=== PATIENT | female | born 1950 | race Caucasian/White ===

== ENCOUNTER 2024-05-16 10:08 | Inpatient (IN) ==
[~2024-05-16 10:08] MED LIST: NS 0.45% 1000 ml BAG 1,000 ML IV SCH; Naloxone 0.4 mg VIAL 0.4 mg/ml 1 ml VIAL IV PRN; Ondansetron 4 mg VIAL 2 MG/ML 2 ml VIAL IV PRN; fentaNYL 100 mcg/2 ml 50 MCG/ML VIAL IV PRN
[2024-05-16] MEDS ORDERED: Propofol 10 MG/ML 20 ML BTL ONE (10:13)
[2024-05-16] MEDS ORDERED: Rocuronium 50 mg VIAL 10 mg/ml 5 ml VIAL (50 mg) ONE ×3 (10:13→17:45)
[2024-05-16] MEDS ORDERED: Dexamethasone IV 4 MG/ML VIAL 1 ml VIAL ONE ×2 (10:13→13:35)
[2024-05-16] MEDS ORDERED: Ondansetron 4 mg VIAL 2 MG/ML 2 ml VIAL ONE (10:13)
[2024-05-16] MEDS ORDERED: Lidocaine 2% PF 5 ML VIAL ONE (10:13)
[2024-05-16] MEDS ORDERED: Midazolam 2 mg/2 ml VIAL 1 mg/ml 2 ml VIAL (2 mg) ONE ×2 (10:14→13:35)
[2024-05-16] MEDS ORDERED: fentaNYL 250 mcg/5 ml 50 MCG/ML 5 ml VIAL (250 MCG) ONE (10:14)
[2024-05-16] MEDS: Buffered Lidocaine 1% SYRIN 1 ml INTRADERM ONE (11:18)
[2024-05-16] MEDS ORDERED: ceFAZolin 2 GM PREMIX 2 GM/50 ML BAG ONE (12:04)
[2024-05-16 12:14] LABS: Rapid COVID-19 Molecular Undetected (Undetected)
[2024-05-16] MEDS: Lactated Ringers 1000 ml BAG 1,000 ML IV SCH ×2 (12:49→22:17)
[2024-05-16] MEDS ORDERED: ROPIVACAINE 5 MG/ML 30 ML BTL (0.5%) ONE (13:35)
[2024-05-16] MEDS ORDERED: HYDROmorphone 0.5 MG/0.5 ML SYRINGE ONE (14:08)
[2024-05-16] MEDS ORDERED: Acetaminophen IV 1 GM/100ML 1,000 MG/100 ML BAG IV ONE (15:35)
[2024-05-16] MEDS ORDERED: fentaNYL 100 mcg/2 ml 50 MCG/ML VIAL ONE ×2 (16:59→18:17)
[2024-05-16] MEDS ORDERED: Vancomycin 1,000 MG VIAL ONE (18:05)
[2024-05-16] MEDS ORDERED: Lactulose 30 ml UDC PO PRN (19:01)
[2024-05-16] MEDS ORDERED: Magnesium Hydroxide LIQ 30 ML UDC PO PRN (19:01)
[2024-05-16] MEDS: Magnesium Hydroxide LIQ 30 ML UDC PO SCH (22:27)
[2024-05-16] MEDS: ceFAZolin 1 GM ADVAN 1 GM in NS 0.9% 50 ML 50 ML IVPB SCH (22:46)
[2024-05-16] MEDS: Acetaminophen IV 1 GM/100ML 1,000 MG/100 ML BAG IV ONE (22:55)
[2024-05-17 05:25] LABS: Hematocrit 31.6 % (35-45); Hemoglobin 10.9 g/dL (11.5-14.3); Mean Platelet Volume 6.6 fL (7.5-11.2); Platelet Count 382 10^3/uL (150-450)
[2024-05-17 05:58] LABS: Calcium 8.1 mg/dL (8.6-10.3); Creatinine, Serum 0.71 mg/dL (0.51-0.95); Potassium 4.6 mmol/L (3.5-5.0); eGFR CKD-EPI 89.7 (>60)
[2024-05-17] MEDS: CMCS:FLUTICAS/UMECLI/VILANT 100-62.5-25 MDI (NF) INH SCH (07:21)
[2024-05-17] MEDS: Vitamin THERAPEUTIC TAB PO SCH (09:56)
[2024-05-17 10:06] LABS: Urine Appearance Clear; Urine Bilirubin Negative (Negative); Urine Blood Negative (Negative); Urine Color Light-Yellow; Urine Glucose Negative (Negative); Urine Ketones Negative (Negative); Urine Nitrite Negative (Negative); Urine Protein Negative (Negative); Urine Urobilinogen Negative (Negative)
[2024-05-17 10:16] LABS: Urine Bacteria Absent /HPF (Absent); Urine Red Blood Cell Trace(0-2/hpf) /HPF (0-Trace); Urine White Blood Cell 2+(11-20/hpf) /HPF (0-Trace)
[2024-05-17] MEDS: Enoxaparin 40 MG/0.4 ML SYR SUBCUT SCH (12:58)
[2024-05-17] MEDS: Ondansetron ODT 4 mg TAB 4 MG TAB PO PRN (20:46)
[2024-05-18] MEDS: Morphine 2 MG/ML SYRINGE IV PRN (02:54)
[2024-05-18 06:12] LABS: Hematocrit 29.1 % (35-45); Mean Platelet Volume 6.8 fL (7.5-11.2); Platelet Count 358 10^3/uL (150-450)
[2024-05-19 07:45] LABS: Hematocrit 31.6 % (35-45); Hemoglobin 10.3 g/dL (11.5-14.3); Mean Platelet Volume 6.8 fL (7.5-11.2); Platelet Count 408 10^3/uL (150-450)
[2024-05-20 08:09] LABS: Hematocrit 33.5 % (35-45); Hemoglobin 10.9 g/dL (11.5-14.3); Platelet Count 309 10^3/uL (150-450)
[2024-05-21 06:17] LABS: Hematocrit 29.6 % (35-45); Hemoglobin 10.2 g/dL (11.5-14.3); Mean Platelet Volume 6.9 fL (7.5-11.2); Platelet Count 366 10^3/uL (150-450)
[2024-05-21] MEDS: PTO:Albuterol HFA INHALER 8 gm MDI INH PRN (09:18)
[2024-05-22 01:26] LABS: Calcium 8.7 mg/dL (8.6-10.3); Creatinine, Serum 0.66 mg/dL (0.51-0.95); Potassium 4.3 mmol/L (3.5-5.0); eGFR CKD-EPI 92.6 (>60)
[2024-05-22 06:31] LABS: Hematocrit 32.2 % (35-45); Hemoglobin 10.8 g/dL (11.5-14.3); Mean Corpuscular Hemoglobin 32.3 pg (27-33); Mean Corpuscular Hgb Conc 33.5 g/dL (31-36); Mean Corpuscular Volume 96.6 fL (80-97); Mean Platelet Volume 6.8 fL (7.5-11.2); Platelet Count 423 10^3/uL (150-450); Red Blood Count 3.33 10^6/uL (3.63-4.92); Red Cell Distribution Width 13.7 % (12-17); White Blood Count 9.9 10^3/uL (3.8-11.8)
[2024-05-22 07:15] LABS: Calcium 8.8 mg/dL (8.6-10.3); Creatinine, Serum 0.82 mg/dL (0.51-0.95); Magnesium 2.2 mg/dL (1.9-2.7); Potassium 4.7 mmol/L (3.5-5.0); eGFR CKD-EPI 75.5 (>60)
[2024-05-22 08:21] LABS: ABS Eosinophils 0.4 10^3/uL (0.0-0.5); ABS Lymphocytes 1.6 10^3/uL (1.0-4.8); ABS Monocytes 0.8 10^3/uL (0.0-0.9); Eosinophil % 3.9 %; Lymphocyte % 16.3 %
[2024-05-22 10:23] VITALS: BP 130/77
[2024-05-22] MEDS: Iohexol 350 (CONTRAST) 500 ML MDV IV ONE (11:19)
== END 2024-05-22 11:45 | DRG 493 ==
LOC: OR 10:08 → SSU 10:08 → SUATTDRO 05-18 13:11
PROVIDERS: ADMIT Orthopaedic Surgery; ATTEND Orthopaedic Surgery

== ENCOUNTER 2024-06-26 17:20 | Inpatient (IN) ==
[2024-06-26] MEDS ORDERED: Ondansetron ODT 4 mg TAB 4 MG TAB PO PRN (17:51)
[2024-06-26] MEDS ORDERED: Morphine 2 MG/ML SYRINGE IV PRN (17:51)
[2024-06-26] MEDS ORDERED: Magnesium Hydroxide LIQ 30 ML UDC PO PRN (17:51)
[2024-06-26] MEDS ORDERED: Lactulose 30 ml UDC PO PRN (17:51)
[2024-06-26] MEDS ORDERED: Ondansetron 4 mg VIAL 2 MG/ML 2 ml VIAL IV PRN (17:51)
[2024-06-26] MEDS ORDERED: Vancomycin per Pharmacy 1 EA NOTE FOLLOW UP SCH (18:00)
[2024-06-26] MEDS: Vancomycin 1,000 MG in NS 0.9% 250 ml 250 ML IVPB ONE (18:56)
[2024-06-26 18:57] LABS: ABS Eosinophils 0.3 10^3/uL (0.0-0.5); ABS Lymphocytes 2.1 10^3/uL (1.0-4.8); ABS Monocytes 0.6 10^3/uL (0.0-0.9); ABS Neutrophils 7.1 10^3/uL (1.5-7.6); ABS Nucleated RBC 0.02 10^3/ul; Eosinophil % 2.7 %; Hemoglobin 12.5 g/dL (11.5-14.3); Lymphocyte % 20.4 %; Mean Corpuscular Hemoglobin 29.5 pg (27-33); Mean Corpuscular Hgb Conc 32.9 g/dL (31-36); Mean Corpuscular Volume 89.8 fL (80-97); Mean Platelet Volume 7.1 fL (7.5-11.2); Nucleated Red Blood Cells % 0.2 %/100WBC (0.0-0.8); Platelet Count 562 10^3/uL (150-450); Red Blood Count 4.23 10^6/uL (3.63-4.92); Red Cell Distribution Width 14.9 % (12-17); White Blood Count 10.1 10^3/uL (3.8-11.8)
[2024-06-26] MEDS: Lactated Ringers 1000 ml BAG 1,000 ML IV SCH (18:57)
[2024-06-26 19:33] LABS: Albumin 3.7 g/dL (3.2-5.2); Albumin/Globulin Ratio 0.9 (1-3); C Reactive Protein 89.95 mg/L (<8.01); Calcium 9.2 mg/dL (8.6-10.3); Creatinine, Serum 0.59 mg/dL (0.51-0.95); Potassium 4.3 mmol/L (3.5-5.0); Total Bilirubin 0.4 mg/dL (0.2-1.0); Total Protein 7.7 g/dL (6.4-8.9); eGFR CKD-EPI 95.1 (>60)
[2024-06-26] MEDS ORDERED: Albuterol/Ipratropium NEB.SOL (2.5/0.5 MG) 3 ML NEB.SOLN ONE (19:54)
[2024-06-26] MEDS: Albuterol/Ipratropium NEB.SOL (2.5/0.5 MG) 3 ML NEB.SOLN INH ONE ×2 (19:59→21:04)
[2024-06-26] MEDS: Iohexol 350 (CONTRAST) 500 ML MDV IV ONE (20:48)
[2024-06-26] MEDS: Magnesium Hydroxide LIQ 30 ML UDC PO SCH (20:58)
[2024-06-27] MEDS: Vancomycin 1,250 MG in NS 0.9% 250 ml 250 ML IVPB SCH ×2 (04:44→04:46)
[2024-06-27] MEDS ORDERED: Lidocaine 2% PF 5 ML VIAL INJ ONE (06:51)
[2024-06-27] MEDS ORDERED: fentaNYL 100 mcg/2 ml 50 MCG/ML VIAL IV ONE ×3 (06:51→11:11)
[2024-06-27] MEDS ORDERED: Propofol 10 MG/ML 20 ML BTL IV ONE (06:51)
[2024-06-27] MEDS: Hyaluronidase HUMAN 15 UNIT in Sodium Chloride 0.9% 0.9 ML INTRADERM ONE (07:18)
[2024-06-27] MEDS ORDERED: Succinylcholine 200 mg VIAL 20 mg/ml 10 ml VIAL (200 mg) IV ONE (08:14)
[2024-06-27] MEDS: FLUTICAS/UMECLI/VILANT 100-62.5-25 MDI (NF) INH SCH (08:37)
[2024-06-27] MEDS ORDERED: Rocuronium 50 mg VIAL 10 mg/ml 5 ml VIAL (50 mg) INJ ONE (08:46)
[2024-06-27] MEDS ORDERED: Phenylephrine 40 mcg/mL 10mL (400mcg) SYRINGE INJ ONE (08:53)
[2024-06-27] MEDS ORDERED: Naloxone 0.4 mg VIAL 0.4 mg/ml 1 ml VIAL IV PRN (09:28)
[2024-06-27] MEDS ORDERED: Morphine 4 MG/ML VIAL (1 ml) IV PRN (09:28)
[2024-06-27] MEDS: fentaNYL 100 mcg/2 ml 50 MCG/ML VIAL IV PRN (11:12)
[2024-06-27] MEDS: Vitamin THERAPEUTIC TAB PO SCH (14:08)
[2024-06-27] MEDS: Nystatin TOP POWDER 15 GM BTL TOPICAL SCH (21:08)
[2024-06-28 06:15] LABS: ABS Basophils 0.1 10^3/uL (0.0-0.1); ABS Eosinophils 0.3 10^3/uL (0.0-0.5); ABS Lymphocytes 1.5 10^3/uL (1.0-4.8); ABS Monocytes 0.6 10^3/uL (0.0-0.9); ABS Neutrophils 5.8 10^3/uL (1.5-7.6); ABS Nucleated RBC 0.01 10^3/ul; Eosinophil % 3.2 %; Hematocrit 33.2 % (35-45); Lymphocyte % 18.5 %; Mean Corpuscular Hgb Conc 33.1 g/dL (31-36); Mean Corpuscular Volume 90.6 fL (80-97); Mean Platelet Volume 6.8 fL (7.5-11.2); Nucleated Red Blood Cells % 0.1 %/100WBC (0.0-0.8); Platelet Count 421 10^3/uL (150-450); Red Blood Count 3.67 10^6/uL (3.63-4.92); Red Cell Distribution Width 14.8 % (12-17); White Blood Count 8.3 10^3/uL (3.8-11.8)
[2024-06-28 06:57] LABS: Albumin/Globulin Ratio 0.9 (1-3); Calcium 8.1 mg/dL (8.6-10.3); Creatinine, Serum 0.56 mg/dL (0.51-0.95); Globulin 3.2 g/dL (2-4); Potassium 3.9 mmol/L (3.5-5.0); Total Bilirubin 0.4 mg/dL (0.2-1.0); Total Protein 6.2 g/dL (6.4-8.9); eGFR CKD-EPI 96.3 (>60)
[2024-06-28] MEDS: Albuterol HFA INHALER 8 gm MDI INH PRN (09:29)
[2024-06-28] MEDS: cefTRIAXone 1 gm/50 mL D5W 1 GM/50 ML BAG IV SCH (09:40)
[2024-06-28] MEDS: Enoxaparin 40 MG/0.4 ML SYR SUBCUT SCH (11:46)
[2024-06-28] MEDS: Vancomycin Trough Check NOTE FOLLOW UP ONE (17:26)
[2024-06-29 05:58] LABS: ABS Basophils 0.1 10^3/uL (0.0-0.1); ABS Eosinophils 0.3 10^3/uL (0.0-0.5); ABS Lymphocytes 1.8 10^3/uL (1.0-4.8); ABS Monocytes 0.5 10^3/uL (0.0-0.9); ABS Neutrophils 3.8 10^3/uL (1.5-7.6); ABS Nucleated RBC 0.01 10^3/ul; Eosinophil % 5.2 %; Hematocrit 32.5 % (35-45); Hemoglobin 10.8 g/dL (11.5-14.3); Lymphocyte % 27.1 %; Mean Corpuscular Hemoglobin 30.1 pg (27-33); Mean Corpuscular Hgb Conc 33.2 g/dL (31-36); Mean Corpuscular Volume 90.7 fL (80-97); Mean Platelet Volume 6.9 fL (7.5-11.2); Nucleated Red Blood Cells % 0.1 %/100WBC (0.0-0.8); Platelet Count 409 10^3/uL (150-450); Red Blood Count 3.59 10^6/uL (3.63-4.92); White Blood Count 6.5 10^3/uL (3.8-11.8)
[2024-06-29] MEDS: Vancomycin Random Level NOTE FOLLOW UP ONE (06:00)
[2024-06-29 06:25] LABS: Calcium 8.3 mg/dL (8.6-10.3); Creatinine, Serum 0.49 mg/dL (0.51-0.95); Magnesium 2.1 mg/dL (1.9-2.7); Potassium 4.1 mmol/L (3.5-5.0); eGFR CKD-EPI 99.5 (>60)
[2024-06-29] MEDS: Vancomycin 1000 MG in NS 0.9% 250 ML IVPB SCH (11:24)
[2024-06-30 08:20] LABS: ABS Eosinophils 0.3 10^3/uL (0.0-0.5); ABS Lymphocytes 1.7 10^3/uL (1.0-4.8); ABS Monocytes 0.5 10^3/uL (0.0-0.9); ABS Neutrophils 4.4 10^3/uL (1.5-7.6); ABS Nucleated RBC 0.01 10^3/ul; Lymphocyte % 24.5 %; Mean Corpuscular Hemoglobin 29.7 pg (27-33); Mean Corpuscular Hgb Conc 33.3 g/dL (31-36); Mean Corpuscular Volume 89.3 fL (80-97); Mean Platelet Volume 6.8 fL (7.5-11.2); Nucleated Red Blood Cells % 0.1 %/100WBC (0.0-0.8); Platelet Count 457 10^3/uL (150-450); Red Cell Distribution Width 14.7 % (12-17); White Blood Count 6.8 10^3/uL (3.8-11.8)
[2024-06-30 08:42] LABS: Calcium 8.3 mg/dL (8.6-10.3); Creatinine, Serum 0.56 mg/dL (0.51-0.95); Magnesium 2.2 mg/dL (1.9-2.7); Potassium 3.9 mmol/L (3.5-5.0); eGFR CKD-EPI 96.3 (>60)
[2024-06-30 13:14] LABS: C Reactive Protein 24.61 mg/L (<8.01)
[2024-07-01 10:26] LABS: Creatinine, Serum 0.64 mg/dL (0.51-0.95); Vancomycin Trough 17.6 mcg/mL; eGFR CKD-EPI 93.3 (>60)
[2024-07-01] MEDS: Vancomycin Trough Check NOTE FOLLOW UP ONE (10:35)
[2024-07-02] MEDS: Vancomycin 1,750 MG in NS 0.9% 500 ml BAG 500 ML IVPB SCH (13:02)
[2024-07-02 13:49] VITALS: BP 110/46
== END 2024-07-02 17:15 | DRG 903 ==
LOC: ED 17:20 → EDHOLD 17:51 → SSU 06-27 02:39
PROVIDERS: ADMIT Orthopaedic Surgery Hand Surgery; ATTEND Orthopaedic Surgery